=== PATIENT | male | born 1940 | race Caucasian/White ===

== ENCOUNTER → 2016-07-27 | Outpatient (CLI) | payer MEDICARE, OTHER ==
[~2016-07-27] MED LIST: AMLO5TAB2 PO; ASPI1TAB69 PO; CALC1TAB87 PO; DIAZ5TAB PO; FERR1TAB36 PO; GLYB1.253 PO; HYDR-3516 PO; LOVA40TA PO; METF500T PO; PERC7.5T13 PO; ZOLO100T PO
[2016-07-27 10:19] LABS: CHLORIDE 106 MEQ/L (98-107); POTASSIUM 4.8 MEQ/L (3.5-5.1); SODIUM (NA) 143 MEQ/L (136-145)
[2016-07-27 10:25] LABS: ANION GAP 5 MEQ/L (5-15); BICARBONATE 31.7 MEQ/L (21.0-32.0); GLUCOSE,FASTING 120 MG/DL (74-99)
[2016-07-27 10:26] LABS: AST (GOT) 21 U/L (15-37); GLOMERULAR FILTRATION RATE 54 ML/MIN (>89)
[2016-07-27 10:29] LABS: ALKALINE PHOSPHATASE 72 U/L (45-117)
[2016-07-27 10:32] LABS: ALT (GPT) 26 U/L (12-78)
[2016-07-27 10:33] LABS: BLOOD UREA NITROGEN 19 MG/DL (7-18)
[2016-07-27 10:39] LABS: TOTAL BILIRUBIN ADULT 0.7 MG/DL (0.2-1.0)
[2016-07-27 15:53] LABS: HEMOGLOBIN A1a 1.5 %; HEMOGLOBIN A1b 1.3 %; HEMOGLOBIN Ao 82.6 %; HEMOGLOBIN F 1.1 %; HEMOGLOBIN LA1C 3.4 %; HEMOGLOBIN P3 4.3 %
== END ==
LOC: PLAB 07:58
PROVIDERS: ATTEND Family Medicine
DX: E11.9 Type 2 diabetes mellitus without complications (principal)
CPT/HCPCS: 36415; 80053; 83036

== ENCOUNTER → 2017-01-31 | Outpatient (CLI) | payer MEDICARE, OTHER ==
[~2017-01-31] MED LIST changes: -FERR1TAB36 PO; -HYDR-3516 PO; -METF500T PO
[2017-01-31 13:21] LABS: AUTOMATED NEUTROPHIL # 4.4 TH/MM3 (1.8-7.7); BASOPHIL % 0.7 % (0.0-2.0); EOSINOPHIL # 0.2 TH/MM3 (0-0.4); EOSINOPHIL % 3.3 % (0.0-4.0); HEMATOCRIT 36.9 % (39.0-51.0); HEMO FLAGS DIFF FINAL; LYMPH % 14.8 % (9.0-44.0); LYMPHOCYTE # 0.9 TH/MM3 (1.0-4.8); MEAN CELL VOLUME 93.2 FL (80.0-100.0); MEAN CORPUSCULAR HEMOGLOBIN 30.6 PG (27.0-34.0); MEAN CORPUSCULAR HGB CONC 32.8 % (32.0-36.0); MONO % 7.9 % (0.0-8.0); NEUT % 73.3 % (16.0-70.0); PLATELET COUNT 224 TH/MM3 (150-450); RED BLOOD COUNT 3.96 MIL/MM3 (4.50-5.90); RED CELL DISTRIBUTION WIDTH 14.4 % (11.6-17.2)
[2017-01-31 13:52] LABS: ANION GAP 7 MEQ/L (5-15); AST (GOT) 24 U/L (15-37); BICARBONATE 28.4 MEQ/L (21.0-32.0); BLOOD UREA NITROGEN 20 MG/DL (7-18); CHLORIDE 105 MEQ/L (98-107); GLOMERULAR FILTRATION RATE 58 ML/MIN (>89); GLUCOSE,FASTING 106 MG/DL (74-99); SODIUM (NA) 140 MEQ/L (136-145)
[2017-01-31 14:04] LABS: ALKALINE PHOSPHATASE 66 U/L (45-117); ALT (GPT) 28 U/L (12-78); HDL CHOLESTEROL 37.9 MG/DL (40.0-60.0); LDL CHOLESTEROL 166 MG/DL (0-99); TOTAL BILIRUBIN ADULT 0.5 MG/DL (0.2-1.0); TRANSFERRIN IRON PROFILE 237 MG/DL (200-360)
[2017-01-31 18:41] LABS: HEMOGLOBIN A1a 1.5 %; HEMOGLOBIN A1b 1.5 %; HEMOGLOBIN Ao 81.8 %; HEMOGLOBIN F 1.1 %; HEMOGLOBIN LA1C 3.8 %; HEMOGLOBIN P3 5.8 %
[2017-01-31 22:03] LABS: MICRO ALBUMIN RANDOM URINE RAW 13.9 MG/L (0.0-30.0)
== END ==
LOC: PLAB 08:11
PROVIDERS: ATTEND Family Medicine
DX: D64.9 Anemia, unspecified (principal); E78.5 Hyperlipidemia, unspecified; E11.9 Type 2 diabetes mellitus without complications; C61 Malignant neoplasm of prostate; R53.83 Other fatigue; E55.9 Vitamin D deficiency, unspecified
CPT/HCPCS: 36415; 80053; 80061; 82043; 82306; 83036; 83540; 83550; 84153; 84443; 85025

== ENCOUNTER → 2017-12-06 | Outpatient (CLI) | payer MEDICARE, OTHER ==
[2017-12-06 10:19] LABS: AUTOMATED NEUTROPHIL # 5.6 TH/MM3 (1.8-7.7); BASOPHIL # 0.1 TH/MM3 (0-0.2); BASOPHIL % 0.9 % (0.0-2.0); EOSINOPHIL # 0.2 TH/MM3 (0-0.4); EOSINOPHIL % 2.6 % (0.0-4.0); HEMATOCRIT 35.5 % (39.0-51.0); HEMOGLOBIN 11.7 GM/DL (13.0-17.0); LYMPH % 15.2 % (9.0-44.0); LYMPHOCYTE # 1.2 TH/MM3 (1.0-4.8); MEAN CELL VOLUME 91.2 FL (80.0-100.0); MEAN CORPUSCULAR HEMOGLOBIN 30.2 PG (27.0-34.0); MEAN CORPUSCULAR HGB CONC 33.1 % (32.0-36.0); MONO % 7.6 % (0.0-8.0); MONOCYTE # 0.6 TH/MM3 (0-0.9); NEUT % 73.7 % (16.0-70.0); PLATELET COUNT 328 TH/MM3 (150-450); RED BLOOD COUNT 3.89 MIL/MM3 (4.50-5.90); RED CELL DISTRIBUTION WIDTH 14.3 % (11.6-17.2); WHITE BLOOD COUNT 7.6 TH/MM3 (4.0-11.0)
[2017-12-06 10:40] LABS: ALBUMIN 3.6 GM/DL (3.4-5.0); AST (GOT) 15 U/L (15-37); BLOOD UREA NITROGEN 31 MG/DL (7-18); CALCIUM 9.8 MG/DL (8.5-10.1); CHLORIDE 103 MEQ/L (98-107); GLOMERULAR FILTRATION RATE 59 ML/MIN (>89); GLUCOSE,FASTING 113 MG/DL (74-99); SODIUM (NA) 141 MEQ/L (136-145)
[2017-12-06 10:42] LABS: CHOLESTEROL 149 MG/DL (120-200); TRIGLYCERIDES 183 MG/DL (42-150)
[2017-12-06 10:52] LABS: ALKALINE PHOSPHATASE 143 U/L (45-117); ALT (GPT) 29 U/L (12-78); CHOLESTEROL/ HDL RATIO 4.17 RATIO; HDL CHOLESTEROL 35.7 MG/DL (40.0-60.0); LDL CHOLESTEROL 77 MG/DL (0-99); TOTAL BILIRUBIN ADULT 0.3 MG/DL (0.2-1.0); TOTAL PROTEIN 8.1 GM/DL (6.4-8.2)
[2017-12-06 15:35] LABS: HEMOGLOBIN A1C 5.3 % (4.3-6.0)
== END ==
LOC: PLAB 08:52
PROVIDERS: ATTEND Family Medicine
DX: E78.5 Hyperlipidemia, unspecified (principal); E11.9 Type 2 diabetes mellitus without complications; R53.83 Other fatigue; E55.9 Vitamin D deficiency, unspecified
CPT/HCPCS: 36415; 80053; 80061; 82306; 83036; 84443; 85025